=== PATIENT | male | born 1975 | race Hispanic/Latino ===

== ENCOUNTER 2017-01-06 14:50 | Emergency (ER) | payer BC ==
--- NOTE | 2017-01-06 16:42 | ERRECORD ---
[facility] EMERGENCY RECORD HPI HAND (FriJan 07, 2017 09:10 MBRI) CHIEF COMPLAINT: Patient presents for evaluation of deformity, to the left hand, Patient presents for evaluation of injury, to the left hand, Patient presents for evaluation of pain. HISTORIAN: History provided by patient, History provided by patient's spouse. MECHANISM OF INJURY: Pt was tending some animals and the rope got wrapped around his left humb and pummel of his saddle. This twisted his thumb and caused the injury. Pt was wearing gloves at the time. Noted deformity of the thumb. LOCATION: Symptoms are localized, most severe in the first finger, Radiation is, proximally. QUALITY: Pain is sharp in nature, described as shooting. SEVERITY: Maximum severity of symptoms severe, Currently symptoms are severe. TIME COURSE: Sudden onset of symptoms, just prior to arrival, There has been no change in the patient's symptoms over time, are constant. ASSOCIATED WITH: No associated coolness to touch, Associated with decreased use, No associated distal neuro complaint, Associated with finger pain, No associated open wounds, No associated proximal injury, Denies any other complaints. EXACERBATED BY: Patient's condition exacerbated by movement. RELIEVED BY: Patient's condition relieved by nothing, Patient's condition relieved by nothing because patient has not tried anything for relief. ROS (FriJan 07, 2017 09:12 MBRI) CONSTITUTIONAL: Negative constitutional review of systems. CARDIOVASCULAR: Negative cardiovascular review of systems. RESPIRATORY: Negative respiratory review of systems. GI: Negative gastrointestinal review of systems. MUSCULOSKELETAL: Historian reports deformity, denies fall, reports injury, reports joint swelling. SKIN: Negative skin review of systems. NEUROLOGIC: Negative neurologic review of systems, Historian denies paralysis, denies paresthesias, denies sensory changes. HEMO/LYMPHATIC: Normal hematologic/lymphatic system review. PAST MEDICAL HISTORY (14:56 KMOR) MEDICAL HISTORY: Flu vaccine up to date, Tetanus immunization up to date, Past medical history includes musculoskeletal disorder, rheumatoid arthritis. MALE SURGICAL HISTORY: RIGHT ELBOW AND RIGHT KNEE. PSYCHIATRIC HISTORY: No previous psychiatric history. SOCIAL HISTORY: Patient denies drug use, Patient currently uses tobacco, chews tobacco. KNOWN ALLERGIES No Known Drug Allergies &a-1R&a+25V*p+0X*i6538W*c202B*c15G*c2P*p-0X&a-25V&a+1R Name: Moe Clark : 1975 M41 MedRec: [id number] AcctNum: [id number] Prepared: FriJan 07, 2017 09:28 by Interface Page 1 of 3 pMD [facility] EMERGENCY RECORD CURRENT MEDICATIONS (16:04 JSMI) methotrexate: POWDER (GRAM) : MISCELLANEOUS Patient Dose: unk. folic acid: CAPSULE : Strength - 5 mg : ORAL Patient Dose: unk. naproxen: TABLET : Strength - 500 mg : ORAL Patient Dose: 2 times a day. VITAL SIGNS VITAL SIGNS: BP: 139/84, Pulse: 77, Resp: 18, Temp: 97.7 (Oral), Pain: 10, O2 sat: 97 on Room Air, Time: 01/06/2017 14:54. (14:54 KMOR) BP: 117/74, Pulse: 76, Resp: 18, Pain: 7, O2 sat: 95 on Room Air, Time: 01/06/2017 16:00. (16:00 KMOR) PHYSICAL EXAM (FriJan 07, 2017 09:13 MBRI) CONSTITUTIONAL: Vital Signs Reviewed, Patient appears non toxic, Patient appears, in mild pain distress, Patient alert and oriented to person, place and time, Nursing notes reviewed. RESPIRATORY CHEST: Respiratory and chest exam normal. CARDIOVASCULAR: Cardiovascular assessment normal. UPPER EXTREMITY: Upper extremity exam included findings of inspection abnormal, deformity present, Range of motion limited, Left hand:, active range of motion limited, Passive range of motion causes pain, Radial pulse normal, Ulnar pulse normal, capillary refill less than 2 seconds, distal motor intact, distal sensory intact, no cyanosis, no clubbing, no edema, Wrist examination normal findings, left wrist, no abrasions, no deformity, no ecchymosis, no swelling, no hematoma, no erythema, no tenderness to palpation, no warmth, full range of motion, Hand examination normal findings, left hand, no ecchymosis, no hematoma, no erythema, no warmth, Abrasions on the hand, left hand, thumb, Hand crepitus, left hand, thumb, Hand deformity, left hand, thumb, Hand tenderness, left hand, thumb, Unstable metacarpal phalangeal joint. NEURO: Reina coma scale 15, Neuro exam findings include patient oriented to person, place and time, Speech normal, Gait normal, no focal sensory deficits. SKIN: Skin exam included findings of skin warm, dry, and normal in color. RADIOLOGYINTERPRETATION (16:21 MBRI) UPPER EXTERMITIES: Radiological interpretation of, the right hand shows, no dislocations, however, fracture noted, to proximal phalanx, of the thumb, which is &a-1R&a+25V*p+0X*g1054R*c202B*c15G*c2P*p-0X&a-25V&a+1R Name: Moe Clark : 1975 M41 MedRec: [id number] AcctNum: [id number] Prepared: FriJan 07, 2017 09:28 by Interface Page 2 of 3 pMD [facility] EMERGENCY RECORD displaced, which is transverse. 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 MEDICATION ADMINISTRATION SUMMARY Drug Name: morphine injection, Dose Ordered: 8 mg, Route: Intramuscular, Status: Given, Time: 15:36 01/06/2017, Detailed record available in Medication Service section. DOCTOR NOTES (FriJan 07, 2017 09:16 MBRI) TEXT: Pt evaluated and appears stable. No findings on my exam or studies to suggest sig injury or issue requiring hospitalization or intervention/consultation on an inpt basis. No indications for urgent or emergent surgical intervention for this injury. Plan of care discussed with pt and questions answered. Pt was informed of reasons for follow-up and strict reasons for return and they stated understanding. Pt is stable for d/c home at this time and follow-up with Ortho for this fracture, including further evaluation and possible surgical intervention at that time. Injury was splinted/immobilized in the ED prior to d/c. PROBLEM LIST No recorded problems DIAGNOSIS (16:22 MBRI) FINAL: PRIMARY: fracture - proximal phalanx, thumb RIGHT. PRESCRIPTION (15:30 MBRI) HYDROcodone-acetaminophen: TABLET : 5 mg-325 mg : ORAL : Quantity: 1-2 Unit: tab(s) Route: ORAL Schedule: every 4 hours prn Dispense: 20 May substitute. Refills: No Refills . NOTES: No refills. DISPOSITION PATIENT: Disposition Type: Discharge, Disposition: *Discharge Home, Condition: Fair. (16:22 MBRI) Patient left the department. (16:34 KMOR) Tran: TRACEY=CRUZ Calderón, Zoey KMOR=CRUZ Mccauley, Josi MBRI=DO Tyson Matthew &a-1R&a+25V*p+0X*r2169X*c202B*c15G*c2P*p-0X&a-25V&a+1R Name: Moe Clark : 1975 M41 MedRec: [id number] AcctNum: [id number] Prepared: Francy Jan 07, 2017 09:28 by Interface Page 3 of 3 pMD MTDD
--- NOTE | 2017-01-06 16:45 | PICIS ---
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 (FriJan 06, 2017 14:54 KMOR) PATIENT: NAME: Moe Clark, AGE: 41, GENDER: male, : [facility] 1975, TIME OF GREET: FriJan 06, 2017 14:51, PREFERRED LANGUAGE: Welsh, ETHNICITY: Not or , ECODE BILLING MAP: [facility], SSN: [id number], Zip Code: [address], KG WEIGHT: 81.65, PHONE: , , , PERSON ID: [id number], PAYMENT: [employer], PCP: DO SWAIN JOHN SCOTT. (FriJan 06, 2017 14:54 KMOR) COMPLAINT: THUMB INJURY. (FriJan 06, 2017 14:54 KMOR) ADMISSION: URGENCY: 3 Urgent, ADMISSION SOURCE: Home, TRANSPORT: CAR, BED: ER -05. (FriJan 06, 2017 14:54 KMOR) ASSESSMENT: Assessment: A&OX4,. RR EVEN AND UNLABORED., Symptoms began 30 min ago. (14:56 KMOR) PAIN: Patient complains of pain described as, aching, on a scale 0-10 patient rates pain as 10, Location RIGHT THUMB. (14:56 KMOR) IMMUNIZATIONS: Flu vaccine up to date, Tetanus immunization up to date. (14:56 KMOR) SIRS SCORING: Heart Rate 55-109 (0), Temp range 96.8-101.1 (0), respiratory rate 12-24 (0), Mental Status altered: no (0), Infection or Suspected Infection: No. (14:56 KMOR) PROVIDERS: TRIAGE NURSE: Josi Mccauley RN. (FriJan 06, 2017 14:54 KMOR) VITAL SIGNS: BP 139/84, Pulse 77, Resp 18, Temp 97.7, (Oral), Pain 10, O2 Sat 97, on Room Air, Time 01/06/2017 14:54. (14:54 KMOR) KNOWN ALLERGIES No Known Drug Allergies CURRENT MEDICATIONS (16:04 [facility]) methotrexate: POWDER (GRAM) : MISCELLANEOUS Patient Dose: unk. folic acid: CAPSULE : Strength - 5 mg : ORAL Patient Dose: unk. naproxen: TABLET : Strength - 500 mg : ORAL Patient Dose: 2 times a day. VITAL SIGNS VITAL SIGNS: BP: 139/84, Pulse: 77, Resp: 18, Temp: 97.7 (Oral), Pain: 10, O2 sat: 97 on Room Air, Time: 01/06/2017 14:54. (14:54 KMOR) BP: 117/74, Pulse: 76, Resp: 18, Pain: 7, O2 sat: 95 on Room Air, Time: 01/06/2017 16:00. (16:00 KMOR) NURSING ASSESSMENT: EXTREMITY UPPER (16:00 KMOR) CONSTITUTIONAL: Patient arrives ambulatory, Gait steady, History &a-1R&a+25V*p+0X*t2448M*c202B*c15G*c2P*p-0X&a-25V&a+1R Name: Moe Clark Nicole : 1975 M41 MedRec: [id number] AcctNum: [id number] Prepared: FriJan 07, 2017 09:28 by Interface Page 1 of 7 pMD [facility] EMERGENCY RECORD obtained from patient, Patient appears, uncomfortable, Patient cooperative, Patient alert, Oriented to person, place and time, Skin warm, Skin dry, Skin normal in color, Mucous membranes pink, Mucous membranes moist, Patient is well-groomed, Patient complains of Right thumb injury, Roping, right thumb injury. + deformity, + intact. PAIN: aching pain, right thumb, on a scale 0-10 patient rates pain as 10. LEFT UPPER EXTREMITY: Left upper extremity assessment findings include capillary refill less than 2 seconds, Skin color normal to hand, Skin temperature to hand warm, Distal sensation intact, Muscle tone normal, muscle strength 5, no edema present, radial pulse is +3. RIGHT UPPER EXTREMITY: Right upper extremity assessment findings include capillary refill less than 2 seconds, Skin color normal to hand, Skin temperature to hand warm, Distal sensation intact, Muscle tone normal, muscle strength 5, no edema present, radial pulse is +3, Inspection findings include deformity, to right thumb, Inspection findings include signs of trauma, to thumb. NOTES: Patient tolerated procedure well. NURSING PROCEDURE: DISCHARGE NOTE (16:29 KMOR) DISCHARGE: Patient discharged to home, ambulating with assistance, family driving, accompanied by //partner, Summary of Care printed/ provided, Transition record given to patient, Discharge instructions given to patient, Simple or moderate discharge teaching performed, by CRUZ Prater, Discharge instructions and follow up reviewed with patient. Pt ambulatory to discharge desk., Prescriptions given and instructions on side effects given, Name of prescription(s) given: Janet gastelum person(s) verbalized understanding of discharge instructions and follow-up care, Patient instructed not to drive home. BELONGINGS: Belongings remain with patient, Valuables remain with patient. NURSING PROCEDURE: NURSE NOTES NURSES NOTES: Notes: Ice water provided to patient. (15:57 KMOR) Notes: Ice pack given to patient and encouraged patient to keep hand elevated. (15:00 KMOR) NURSING PROCEDURE: SPLINTING (16:15 KMOR) PATIENT IDENTIFIER: Patient actively involved in identification process, Patient's identity verified by patient stating name, Patient's identity verified by patient stating date. SPLINTING: Splinting indicated for fracture care, Splinting indicated for pain control, Splint applied to, the right hand, by CRUZ Prater, 3 inch reg wrap applied, short arm posterior mold applied, Immobilized in position of comfort. FOLLOW-UP: After procedure, capillary refill less than 2 seconds, &a-1R&a+25V*p+0X*m1775J*c202B*c15G*c2P*p-0X&a-25V&a+1R Name: Moe Clark Nicole : 1975 M41 MedRec: [id number] AcctNum: [id number] Prepared: FriJan 07, 2017 09:28 by Interface Page 2 of 7 pMD [facility] EMERGENCY RECORD After procedure, distal circulation intact, After procedure, distal motor function intact, After procedure, distal sensation intact, After procedure, distal pulses present. NOTES: Patient tolerated procedure well. NURSING PROCEDURE: WOUND CARE (16:11 KMOR) PATIENT IDENTIFIER: Patient actively involved in identification process, Patient's identity verified by patient stating name, Patient's identity verified by patient stating date. TIMEOUT: Prior to procedure, correct patient verified by, patient stating name, patient stating date, Correct procedure verified, Correct site verified, Physician performing procedure Dr. Dr. Tyson, Witnessed by CRUZ Prater. WOUND CARE: Wound care indicated to promote healing, Wound site: righ thumb, Cause of wound: rope, Wound cleansed with Hibiclens, by CRUZ Prater. FOLLOW-UP: After procedure, capillary refill less than 2 seconds, After procedure, distal circulation intact, After procedure, distal motor intact, After procedure, distal sensation intact, After procedure, distal pulses present. NOTES: Patient tolerated procedure well. ORDER DETAILS Order Name: chart element #1, Status: Active, Time: 16:11 01/06/2017, User: System, - Ordered for: DO Tyson Matthew, - Entered by: CRUZ Mccauley, Josi [facility] Jan 06, 2017 16:11, - Quantity: 1, Order Name: chart element #4, Status: Active, Time: 16:11 01/06/2017, User: System, - Ordered for: DO Tyson Matthew, - Entered by: CRUZ [facility] 06, 2017 16:11, - Quantity: 1, Order Name: XR Hand Rt 3 View STANDARD, Status: Active, Time: 14:59 01/06/2017, User: [employer], - Ordered for: DO Tyson Matthew, - Entered by: CRUZ Mccauley, [facility] Jan 06, 2017 14:59, - Quantity: 1. MEDICATION ADMINISTRATION SUMMARY Drug Name: morphine injection, Dose Ordered: 8 mg, Route: Intramuscular, Status: Given, Time: 15:36 01/06/2017, Detailed record available in Medication Service section. MEDICATION SERVICE morphine injection: Order: morphine injection (morphine sulfate) - Dose: 8 mg : Intramuscular Ordered by: Bryan Tyson DO &kayla-1R&a+25V*p+0X*u1598M*c202B*c15G*c2P*p-0X&a-25V&a+1R Name: Davis Clarkissac Rivera : 1975 M41 MedRec: [id number] AcctNum: [id number] Prepared: FriJan 07, 2017 09:28 by Interface Page 3 of 7 pMD [facility] EMERGENCY RECORD Entered by: Bryan Tyson DO FriJan 06, 2017 15:29 , Acknowledged by: Josi Mccauley RN FriJan 06, 2017 15:31 Documented as given by: Josi Mccauley RN FriJan 06, 2017 15:36 Patient, Medication, Dose, Route and Time verified prior to administration. IM medication, Amount given: 8MG, Medication administered to right deltoid, Correct patient, time, route, dose and medication confirmed prior to administration, Patient advised of actions and side-effects prior to administration, Allergies confirmed and medications reviewed prior to administration, Patient in position of comfort, Side rails up, Cart in lowest position, Family at bedside. : Follow Up : Response assessment performed, No signs or symptoms of allergic reaction noted, Decreased pain. (16:16 KMOR) HPI HAND (FriJan 07, 2017 09:10 MBRI) CHIEF COMPLAINT: Patient presents for evaluation of deformity, to the left hand, Patient presents for evaluation of injury, to the left hand, Patient presents for evaluation of pain. HISTORIAN: History provided by patient, History provided by patient's spouse. MECHANISM OF INJURY: Pt was tending some animals and the rope got wrapped around his left humb and pummel of his saddle. This twisted his thumb and caused the injury. Pt was wearing gloves at the time. Noted deformity of the thumb. LOCATION: Symptoms are localized, most severe in the first finger, Radiation is, proximally. QUALITY: Pain is sharp in nature, described as shooting. SEVERITY: Maximum severity of symptoms severe, Currently symptoms are severe. TIME COURSE: Sudden onset of symptoms, just prior to arrival, There has been no change in the patient's symptoms over time, are constant. ASSOCIATED WITH: No associated coolness to touch, Associated with decreased use, No associated distal neuro complaint, Associated with finger pain, No associated open wounds, No associated proximal injury, Denies any other complaints. EXACERBATED BY: Patient's condition exacerbated by movement. RELIEVED BY: Patient's condition relieved by nothing, Patient's condition relieved by nothing because patient has not tried anything for relief. ROS (FriJan 07, 2017 09:12 MBRI) CONSTITUTIONAL: Negative constitutional review of systems. CARDIOVASCULAR: Negative cardiovascular review of systems. RESPIRATORY: Negative respiratory review of systems. GI: Negative gastrointestinal review of systems. MUSCULOSKELETAL: Historian reports deformity, denies fall, reports injury, reports joint swelling. SKIN: Negative skin review of systems. &a-1R&a+25V*p+0X*g8656K*c202B*c15G*c2P*p-0X&a-25V&a+1R Name: Moe Clark : 1975 M41 MedRec: [id number] AcctNum: [id number] Prepared: FriJan 07, 2017 09:28 by Interface Page 4 of 7 pMD [facility] EMERGENCY RECORD NEUROLOGIC: Negative neurologic review of systems, Historian denies paralysis, denies paresthesias, denies sensory changes. HEMO/LYMPHATIC: Normal hematologic/lymphatic system review. PAST MEDICAL HISTORY (14:56 KMOR) MEDICAL HISTORY: Flu vaccine up to date, Tetanus immunization up to date, Past medical history includes musculoskeletal disorder, rheumatoid arthritis. MALE SURGICAL HISTORY: RIGHT ELBOW AND RIGHT KNEE. PSYCHIATRIC HISTORY: No previous psychiatric history. SOCIAL HISTORY: Patient denies drug use, Patient currently uses tobacco, chews tobacco. PHYSICAL EXAM (FriJan 07, 2017 09:13 MBRI) CONSTITUTIONAL: Vital Signs Reviewed, Patient appears non toxic, Patient appears, in mild pain distress, Patient alert and oriented to person, place and time, Nursing notes reviewed. RESPIRATORY CHEST: Respiratory and chest exam normal. CARDIOVASCULAR: Cardiovascular assessment normal. UPPER EXTREMITY: Upper extremity exam included findings of inspection abnormal, deformity present, Range of motion limited, Left hand:, active range of motion limited, Passive range of motion causes pain, Radial pulse normal, Ulnar pulse normal, capillary refill less than 2 seconds, distal motor intact, distal sensory intact, no cyanosis, no clubbing, no edema, Wrist examination normal findings, left wrist, no abrasions, no deformity, no ecchymosis, no swelling, no hematoma, no erythema, no tenderness to palpation, no warmth, full range of motion, Hand examination normal findings, left hand, no ecchymosis, no hematoma, no erythema, no warmth, Abrasions on the hand, left hand, thumb, Hand crepitus, left hand, thumb, Hand deformity, left hand, thumb, Hand tenderness, left hand, thumb, Unstable metacarpal phalangeal joint. NEURO: Reina coma scale 15, Neuro exam findings include patient oriented to person, place and time, Speech normal, Gait normal, no focal sensory deficits. SKIN: Skin exam included findings of skin warm, dry, and normal in color. EVENTS TRANSFER: Triage to Emergency Emergency Room -05. (FriJan 06, 2017 14:54 KMOR) Emergency Emergency Room -05 to -02. (15:29 KMOR) Removed from Emergency Emergency Room -02. (16:34 KMOR) RADIOLOGYINTERPRETATION (16:21 MBRI) UPPER EXTERMITIES: Radiological interpretation of, the right hand shows, no dislocations, however, fracture noted, to &a-1R&a+25V*p+0X*j2405J*c202B*c15G*c2P*p-0X&a-25V&a+1R Name: Moe Clark : 1975 M41 MedRec: [id number] AcctNum: [id number] Prepared: FriJan 07, 2017 09:28 by Interface Page 5 of 7 pMD [facility] EMERGENCY RECORD proximal phalanx, of the thumb, which is displaced, which is transverse. 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 O2SAT INTERPRETATION (16:05 MBRI) O2SAT: Oxygen saturation interpretation: Normal. DOCTOR NOTES (FriJan 07, 2017 09:16 MBRI) TEXT: Pt evaluated and appears stable. No findings on my exam or studies to suggest sig injury or issue requiring hospitalization or intervention/consultation on an inpt basis. No indications for urgent or emergent surgical intervention for this injury. Plan of care discussed with pt and questions answered. Pt was informed of reasons for follow-up and strict reasons for return and they stated understanding. Pt is stable for d/c home at this time and follow-up with Ortho for this fracture, including further evaluation and possible surgical intervention at that time. Injury was splinted/immobilized in the ED prior to d/c. PROBLEM LIST No recorded problems DIAGNOSIS (16:22 MBRI) FINAL: PRIMARY: fracture - proximal phalanx, thumb RIGHT. DISPOSITION PATIENT: Disposition Type: Discharge, Disposition: *Discharge Home, Condition: Fair. (16:22 MBRI) Patient left the department. (16:34 KMOR) INSTRUCTION (16:23 MBRI) DISCHARGE: FRACTURE, THUMB. FOLLOWUP: DO BRYNN, TONY WALTON, [facility], [facility] [facility] [address], , Flakito BARTLETT, EMILIA, Orthopedic Surgery, [address], [address], [facility] [address], , Follow up with Specialist as scheduled. SPECIAL: Please return for any further issues or concerns, we would be happy to see you. We hope you feel better soon. PRESCRIPTION (15:30 MBRI) HYDROcodone-acetaminophen: TABLET : 5 mg-325 mg : ORAL : Quantity: 1-2 Unit: tab(s) Route: ORAL Schedule: every 4 hours prn Dispense: 20 May substitute. Refills: No Refills . NOTES: No refills. IMAGING &a-1R&a+25V*p+0X*i8646A*c202B*c15G*c2P*p-0X&a-25V&a+1R Name: Moe Clark : 1975 M41 MedRec: [id number] AcctNum: [id number] Prepared: FriJan 07, 2017 09:28 by Interface Page 6 of 7 pMD [facility] EMERGENCY RECORD NORCO: Image captured from scanner. (16:29 KMOR) *DISCHARGE INSTRUCTIONS RECEIPT: Image captured from scanner. (17:23 KMOR) *SUPPLY CHARGE SHEET: Image captured from scanner. (17:23 KMOR) ADMIN DIGITAL SIGNATURE: CRUZ Mccauley, Josi. (FriJan 07, 2017 07:17 KMOR) DO Tyson Matthew. (FriJan 07, 2017 09:21 MBRI) Tran: JSMI=CRUZ Calderón, Zoey KMOR=CRUZ Mccauley Krista MBRI=DO Tyson Matthew &a-1R&a+25V*p+0X*p4743X*c202B*c15G*c2P*p-0X&a-25V&a+1R Name: Moe Clark : 1975 M41 MedRec: [id number] AcctNum: [id number] Prepared: Francy Jan 07, 2017 09:28 by Interface Page 7 of 7 pMD MTDD
--- NOTE | 2017-01-06 18:36 | RAD ---
RIGHT HAND THREE VIEWS: Date: 01-06-17 FINDINGS: A transverse fracture of the proximal phalanx of the thumb is seen with slight displacement and angu lation. The joints do not appear to be involved. The remainder of the hand and wrist appear intact . IMPRESSION: Fracture of the proximal phalanx of the thumb. POS: HOME
== END 2017-01-06 16:29 | disposition home or self-care (01) ==
LOC: BURERS 14:50
DX: S62.511A Displaced fracture of proximal phalanx of right thumb, initial encounter for closed fracture (principal); M06.9 Rheumatoid arthritis, unspecified; F17.220 Nicotine dependence, chewing tobacco, uncomplicated; Z79.899 Other long term (current) drug therapy; X58.XXXA Exposure to other specified factors, initial encounter
CPT/HCPCS: 96372; J2270